=== PATIENT | male | born 1970 | race African-American/Black ===

== ENCOUNTER 2018-05-17 10:15 | Emergency (ER) | payer OTHER ==
[~2018-05-17] VITALS: Ht 167.6 cm; Wt 79.4 kg
--- NOTE | 2018-05-17 10:20 | NUR ---
[facility] Cook: BRAULIO Chavez Recommendations: Dilute with water Give PO Fluids and snakcs Symptom control Affects: Abdominal discomfort
== END 2018-05-17 11:38 | disposition home or self-care (01) ==
LOC: ER 10:15
DX: T18.9XXA Foreign body of alimentary tract, part unspecified, initial encounter (principal); T65.891A Toxic effect of other specified substances, accidental (unintentional), initial encounter; Y99.0 Civilian activity done for income or pay
CPT/HCPCS: 99282